=== PATIENT | female | born 2000 | race Caucasian/White ===

== ENCOUNTER 2024-07-23 10:10 | Emergency (ER) | payer OTHER, SELFPAY ==
[2024-07-23 10:11] VITALS: BP 161/95
[2024-07-23 11:39] VITALS: BP 140/85; BMI 22.8
--- NOTE | 2024-07-23 11:55 | ED.SKININJ ---
HPI-Injury
General
Chief Complaint: Skin Problem
Source: patient
Exam Limitations: none
Time Seen by Provider: 07/23/24 10:59
History of Present Illness-Injury
Initial Injury comments:
23-year-old female presents with increased redness swelling and pain to the right upper abdomen. She has had a cyst to this area for quite some time but it recently became inflamed. She was on Bactrim for a week without relief and she was switched
to doxycycline. She has been on this for 5 days and has 5 more days to complete. She denies fevers or vomiting. She is not diabetic. No other complaints at this time
Past History
Past History
ED Past Medical History: None
ED Past Surgical History: None
Social History
Tobacco: Non-smoker
Alcohol: None
Drug: None
Personal: Single
Living: with family
Phy Exam
Physical Exam
Physical Exam:
General: Well-appearing female no acute respiratory distress
Skin: Erythema fluctuance and induration noted to the right upper abdomen. Total area of erythema is about 3 cm out maximum diameter
Extremities: No cyanosis
Course
Vital Signs
Initial and Last Documented VS:
Initial Vital Signs
Temp Pulse Resp BP Pulse Ox
98.0 F 110 16 161/95 98
07/23/24 10:11 07/23/24 10:11 07/23/24 10:11 07/23/24 10:11 07/23/24 10:11
Last Documented Vital Signs
Temp Pulse Resp BP Pulse Ox
97.5 F 86 20 140/85 99
07/23/24 11:39 07/23/24 11:39 07/23/24 11:39 07/23/24 11:39 07/23/24 11:39
MDM/Problems Addressed
Differential Diagnosis Includes:
Erythema induration and fluctuance right upper abdomen. Suspect abscess versus infected sebaceous cyst. Given lack of improvement with antibiotics and increasing symptoms, will advise incision and drainage
The area was sterilely prepped with Betadine anesthetized in a local fashion using 1% lidocaine with epinephrine. 11 blade scalpel was used to make an incision. There is a copious amount of purulent material expressed from the wound followed by a
small amount of sebaceous material. This was bluntly dissected with needle drivers and any broken up. This was then irrigated with saline and dried. Gauze dressing was applied. She will continue current antibiotic. Follow-up with family
*Critical Care Note
Total Time (30-74mins, 75-104mins- exclusive of procedures): Not Applicable
ED Attending Note
-
Portions of this chart may have been created with voice recognition software.� Occasional wrong word or��sound alike� substitutions may have occurred due to the inherent limitations of voice recognition software.
Discharge Plan
Departure
Patient Disposition: Home (Routine Discharge)
Date of Disposition: 07/23/24
Time of Disposition: 11:58
Patient with high blood pressure during this ER visit?: No
Discharge Problem:
Abscess
Instructions: Skin Abscess
Prescriptions:
No Action
No Current Medications
0
Referrals:
Raulito Chinchilla CRNP [Family Provider] -
Activity Restrictions/Additional Instructions:
Continue antibiotics. Wash with warm soapy water pat dry when done keep covered with gauze otherwise. Follow-up with your doctor or return here if worse.
Interventions
Interventions:
*Risk Screen - Suicide Last Done: 07/23/24 10:11
*General Assessment Last Done: 07/23/24 11:39
*Neglect/Abuse Screening Last Done: 07/23/24 10:11
*ED- Fall Risk Assessment Last Done: 07/23/24 11:39
*ED COVID-19 Vaccine History Last Done: 07/23/24 11:39
ED-Skin Assessment Last Done: 07/23/24 11:39
Discharge Date and Time
Print Language: HUNGARIAN
== END 2024-07-23 12:05 | disposition home or self-care (01) ==
LOC: EMR 10:10
PROVIDERS: EMERGENCY PHYSICIAN Emergency Medicine; FAMILY PHYSICIAN Nurse Practitioner Family
DX: L02.211 Cutaneous abscess of abdominal wall (principal)
CPT/HCPCS: 10060; 99282